=== PATIENT | female | born 1945 | race Caucasian/White ===

== ENCOUNTER → 2020-10-21 10:25 | Outpatient (CLI) | payer MEDICARE, OTHER, SELFPAY ==
--- NOTE | 2020-10-21 | DI.RAD.S_ITS ---
PROCEDURE: XR LUMBAR SPINE 2-3V INDICATIONS: Other chronic pain TECHNIQUE: 3 views of the lumbar spine were acquired. COMPARISON: None. FINDINGS: Bones: 5 [id number] vertebrae are present. There is grade 1 retrolisthesis of L2 on L3 and grade 1 anterolisthesis of L4 on L5. Degenerative disc disease is present, severe at L2-L3, moderate at L1-L2 and L3-L4, mild at L4-L5 and L5-S1. Severe facet arthropathy at L4-L5 and L5-S1. No vertebral body compression fractures. There is a sclerotic focus in the right inferior pubic ramus. Soft tissues: Overlying bowel gas pattern is normal. No suspicious soft tissue calcifications. IMPRESSION: 1. Severe degenerative disc and facet disease in lumbar spine. Dictated by: Roseanne Meredith M.D. on 10/21/2020 at 13:08 Approved by: Roseanne Meredith M.D. on 10/21/2020 at 13:15
== END ==
PROVIDERS: PCP Student in an Organized Health Care Education/Training Program; Referring Provider Student in an Organized Health Care Education/Training Program; Visit Provider Student in an Organized Health Care Education/Training Program
DX: M51.16 Intervertebral disc disorders with radiculopathy, lumbar region (principal); M51.17 Intervertebral disc disorders with radiculopathy, lumbosacral region; M47.26 Other spondylosis with radiculopathy, lumbar region; M47.27 Other spondylosis with radiculopathy, lumbosacral region; G89.29 Other chronic pain
CPT/HCPCS: 72100

== ENCOUNTER → 2020-11-28 11:09 | Outpatient (CLI) | payer MEDICARE, OTHER, SELFPAY ==
--- NOTE | 2020-11-28 11:13 | DI.RAD.S_ITS ---
PROCEDURE: XR CERVICAL SPINE 2V OR 3V INDICATIONS: spine pain TECHNIQUE: 4 view(s) of the cervical spine were acquired. COMPARISON: [facility], CR, XR LUMBAR SPINE 2-3V, 10/21/2020, 10:31. FINDINGS: Bones: No fractures or dislocations to the T1 level. The lateral masses of C1 appear intact on the odontoid view. No suspicious bony lesions. Loss of lordosis which could be related to muscle spasm, rigidity or simply positional. Grade 1 retrolisthesis C4-C5 and C5-C6. Grade 1 spondylolisthesis C7-T1. Multilevel disc degeneration, severe at the C4-C5, C5-C6 and C6-C7 levels where there is bilateral facet joint arthropathy. Mild multilevel uncovertebral hypertrophy. Soft tissues: No prevertebral soft tissue swelling. IMPRESSION: Loss of lordosis and multilevel spondylosis. Dictated by: Charli Howard [facility] Interpreted: Sarah Mcguire MD on 11/28/2020 at 14:37 Transcribed by: PIETER on 11/28/2020 at 14:38 Approved by: Sarah Mcguire M.D. on 11/28/2020 at 17:07
== END ==
PROVIDERS: PCP Student in an Organized Health Care Education/Training Program; Referring Provider Student in an Organized Health Care Education/Training Program; Visit Provider Student in an Organized Health Care Education/Training Program
DX: M54.2 Cervicalgia (principal); M47.812 Spondylosis without myelopathy or radiculopathy, cervical region
CPT/HCPCS: 72040

== ENCOUNTER 2021-02-11 21:55 | Emergency (ER) | payer MEDICARE, OTHER, SELFPAY ==
[2021-02-11 22:02] VITALS: BP 112/59; PULSE 54; RESP 16; TEMP 36.7; O2SAT 98
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
[2021-02-11] MEDS: TET,DIPH,PERTUSS(ACELL),VAC/PF 0.5 ML SYRINGE IM (22:49)
[2021-02-11 23:52] VITALS: BP 145/67; PULSE 60; RESP 18; O2SAT 98
== END 2021-02-11 23:55 | disposition home or self-care (01) ==
PROVIDERS: Emergency Provider Emergency Medicine; PCP Student in an Organized Health Care Education/Training Program
DX: S51.011A Laceration without foreign body of right elbow, initial encounter (principal); V19.9XXA Pedal cyclist (driver) (passenger) injured in unspecified traffic accident, initial encounter; Z23 Encounter for immunization
CPT/HCPCS: 12002; 90471; 99283; 90715

== ENCOUNTER → 2021-04-09 11:03 | Outpatient (CLI) | payer MEDICARE, OTHER, SELFPAY ==
--- NOTE | 2021-04-09 | DI.MRI.S_ITS ---
PROCEDURE: MR CERVICAL SPINE WO CON INDICATIONS: Cervicalgia TECHNIQUE: Noncontrast sagittal T1 spin echo and T2 fast spin echo, sagittal STIR, foraminal oblique sagittal T2 fast spin echo, and axial gradient echo or T2 fast spin echo through the cervical spine. COMPARISON: None. FINDINGS: Image quality: Excellent. Alignment and Curvature: There is normal bony alignment. There is straightening of the normal cervical lordosis Bone Marrow: Degenerative endplate changes noted at C4-5, C5-6 and C6-7. Vertebral body height is maintained. Spinal Cord: Visualized spinal cord has normal size and signal. No cerebellar tonsillar herniation. Paraspinous Soft Tissues: No paravertebral masses. Prevertebral soft tissues are normal in thickness. C2-C3: Disc height is maintained. Hypertrophic left facet joint results in moderate left and no right foraminal stenosis. No central stenosis. C3-C4: Disc height is maintained. Mild circumferential disc bulge results in mild central and no foraminal stenosis. C4-C5: Moderate disc space narrowing and posterior disc osteophyte complex results in moderate central stenosis with flattening the ventral surface of the cord. No cord edema. Moderate bilateral foraminal stenosis present. C5-C6: Moderate disc space narrowing posterior disc osteophyte complex results in severe central stenosis with cord indentation in flattening, narrowing the AP diameter of the thecal sac to 5 mm. Hypertrophic uncovertebral joints result in severe bilateral foraminal stenosis greater on the left. C6-C7: Posterior disc osteophyte complex with probable superimposed paracentral left protrusion results in severe central stenosis and cord indentation. No cord edema or gliosis. AP diameter of the thecal sac is 5 mm. Severe left and moderate right foraminal stenosis. C7-T1: Mild disc height loss without central or foraminal stenosis. IMPRESSION: Multilevel degenerative disc disease and arthropathy results in varying degrees of central and foraminal stenosis including severe central stenosis at C5-6 and C6-7, narrowing the AP diameter of the thecal sac to 5 mm. Approved by: Indra Campbell M.D. on 04/09/2021 at 14:22
== END ==
PROVIDERS: PCP Student in an Organized Health Care Education/Training Program; Referring Provider Student in an Organized Health Care Education/Training Program; Visit Provider Student in an Organized Health Care Education/Training Program
DX: M50.31 Other cervical disc degeneration, high cervical region (principal); M48.02 Spinal stenosis, cervical region; M47.812 Spondylosis without myelopathy or radiculopathy, cervical region
CPT/HCPCS: 72141

== ENCOUNTER → 2021-04-27 12:16 | Outpatient (CLI) | payer MEDICARE, OTHER, SELFPAY ==
--- NOTE | 2021-04-27 | DI.MRI.S_ITS ---
PROCEDURE: MR LUMBAR SPINE WO CON INDICATIONS: spinal stenosis lumbar region TECHNIQUE: Noncontrast sagittal T1 spin echo and T2 fast echo, sagittal STIR, axial T1 and T2 fast spin echo through the lumbar spine. In cases with scoliosis, additional coronal T2 fast spin echo may be performed. COMPARISON: [facility], CR, XR LUMBAR SPINE 2-3V, 10/21/2020, 10:31. FINDINGS: Image quality: This examination is limited by involuntary motion artifact. Alignment and Curvature: There is minimal retrolisthesis at L1-L2, mild retrolisthesis at L2-L3. Minimal retrolisthesis is seen at L3-L4. Mild grade 1 anterolisthesis is seen at L4-L5. No definite associated pars defects are seen at L4. Bone Marrow: Marrow is of normal overall signal. No acute vertebral body compression fractures. Spinal Cord: Conus medullaris terminates at the T12-L1 level. Visualized cord demonstrates normal signal and size. Paraspinous Soft Tissues: No paravertebral masses. There is a 4.7 cm left renal cyst seen anteriorly. T12-L1: Normal appearance. L1-L2: At least moderate loss of disc height and disc signal can be seen. Mild to moderate disc bulge is seen. There is moderate right-sided and no left-sided neural foraminal narrowing seen. Mild central canal narrowing is seen. L2-L3: Moderate to severe loss of disc height and disc signal can be seen. Bridging endplate osteophytes are seen. Moderate disc bulge is seen, with a central disc protrusion. Moderate facet joint hypertrophy is seen. There is at least moderate bilateral neural foraminal narrowing seen at this level. At least moderate central canal narrowing can be seen. L3-L4: Mild loss of disc height is seen. Loss of disc signal is seen. Moderate disc bulge is seen, with a central disc protrusion. At least moderate facet hypertrophy can be seen. There is moderate to severe bilateral neural foraminal narrowing seen, left worse than right. There is a degree of compression seen upon the exiting nerve roots. Moderate to severe central canal narrowing is also seen. L4-L5: Mild loss of disc height is seen. Loss of disc signal is seen. Moderate disc bulge is seen, with a central disc protrusion/disc uncovering. Prominent facet hypertrophy is seen at this level. There is moderate to severe bilateral neural foraminal narrowing seen, with associated compression upon the exiting L4 nerve roots. Moderate to severe central canal narrowing can be seen at this level. L5-S1: The disc height is well-preserved. Loss of disc signal is seen at this level. Mild to moderate disc bulge is seen. Prominent facet hypertrophy is seen at this level. There is moderate to severe left-sided neural foraminal narrowing, with associated compression upon the exiting left L5 nerve root. Moderate right-sided neural foraminal narrowing is seen. Mild to moderate central canal narrowing can be seen. IMPRESSION: Multiple levels of lumbar spine degenerative change are seen, which are overall worst at the L3-L4 and L4-L5 levels. Several sites of significant neural foraminal narrowing can be seen, with associated exiting nerve root compression. Dictated by: Ramin Ortiz M.D. on 04/27/2021 at 12:03 Approved by: Ramin Ortiz M.D. on 04/27/2021 at 12:09
== END ==
PROVIDERS: PCP Student in an Organized Health Care Education/Training Program; Referring Provider Orthopaedic Surgery Orthopaedic Surgery of the Spine; Visit Provider Orthopaedic Surgery Orthopaedic Surgery of the Spine
DX: M48.061 Spinal stenosis, lumbar region without neurogenic claudication (principal); M48.07 Spinal stenosis, lumbosacral region; M47.816 Spondylosis without myelopathy or radiculopathy, lumbar region; M47.817 Spondylosis without myelopathy or radiculopathy, lumbosacral region
CPT/HCPCS: 72148

== ENCOUNTER 2022-12-22 09:52 | Day surgery (SDC) | payer MEDICARE, OTHER, SELFPAY ==
--- NOTE | 2022-12-22 | PATH_ITS ---
[facility] Accession Number: [id number] No. of containers..01 Tissue . 01 Material submitted: . body - CERVICAL PATCH . 01 Diagnosis: Designated Cervical Patch, Biopsy: Columnar mucosa negative for intestinal metaplasia. Negative for dysplasia and malignancy. Please see comment. MRV 12/28/2022 1300 Local . 01 Comment: The morphologic appearance could be compatible with cervical inlet patch in the appropriate endoscopic setting. . . 01 Electronically signed: . Cristina Condon MD, Pathologist NPI- [id number] . 01 Gross description: . CERVICAL PATCH: Received in formalin is 1 fragment(s) of singh, soft tissue measuring 0.1 x 0.1 x 0.1 cm submitted entirely in 1 cassette(s) /JODIE 12/27/2022 1947 Local . 01 Pathologist provided ICD-10: K21.9 . 01 CPT . 734553 Performed at: 01 [facility] [address] [place] [address] [address], [place], [place] [id number] MD Noah Viera MD Phone: [phone]
[2022-12-22 10:16] VITALS: BMI 24.7
[2022-12-22 10:27] VITALS: BP 163/93; PULSE 51; RESP 16; TEMP 36.3; O2SAT 97
--- NOTE | 2022-12-22 10:44 | PM.HP.1 ---
History of Present Illness History of Present Illness Date Patient Seen: 12/22/22 Chief complaint: EGD Narrative: Dysphagia/globus with GE reflux PFSH Social History marital status: household members: spouse lives independently: Yes Smoking Status: Never smoker Meds Home Medications and Allergies Home Medications Medication Instructions Recorded Confirmed Type citalopram 20 mg tablet 20 mg PO DAILY 12/22/22 12/22/22 History famotidine 20 mg tablet 20 mg PO BID 12/22/22 12/22/22 History Allergies Allergy/AdvReac Type Severity Reaction Status Date / Time No Known Drug Allergies Allergy Verified 12/22/22 10:13 Exam Vital Signs (past 8 hours): - 12/22/22 10:27 Temperature 97.4 F L Pulse Rate 51 L Respiratory Rate 16 Blood Pressure 163/93 H Pulse Oximetry 97 Oxygen Delivery Method Room Air Oxygen Delivery Method Room Air Narrative Exam Narrative: Oropharynx free of lesions Chest clear to auscultation percussion Cardiac exam reveals no S3 or murmur Assessment & Plan Assessment & Plan narrative: Globus sensation and history of reflux rule out mechanical cause. Risks, benefits, alternatives have been explained to EGD.
--- NOTE | 2022-12-22 10:45 | PM.OP.EGD ---
Operative Date/Time/Diagnoses Date of procedure: 12/22/22 Pre-op diagnosis: See indication and findings Procedure & Clinicians Study performed: EGD Indications: Dysphagia Surgeon: Chase Solitario Procedure Notes Procedure in detail: After informed consent was obtained the patient was placed in left lateral decubitus position. The video upper scope was placed into the oropharynx and with the patient's help swallowed into the esophagus. The esophagus stomach and duodenum were carefully examined. On withdrawal, retroflexed view the GE junction was performed. The scope was removed. The patient tolerated procedure well. Blood loss none Complications none Sedation mac Findings 1. Cervical inlet patch just below the upper esophageal sphincter. Single biopsy was taken to see if more similar to antral mucosa. 2. Normal distal esophagus with normal GE junction 3. Normal normal stomach 4. Normal duodenal bulb and sweep I suspect that patient has globus sensation from poorly controlled reflux. Suggest trial of omeprazole 20 mg b.i.d. OTC for the next 2-4 weeks and then follow-up with Dr. Spring in the office if she continues to have symptoms.
[2022-12-22 11:08] VITALS: BP 120/58; PULSE 52; RESP 14; TEMP 35.8; O2SAT 91
[2022-12-22 11:14] VITALS: BP 117/58; PULSE 48; RESP 15; O2SAT 92
[2022-12-22 11:18] VITALS: BP 116/56; PULSE 52; RESP 18; O2SAT 97
[2022-12-22 11:23] VITALS: BP 129/71; PULSE 49; RESP 14; TEMP 36.2; O2SAT 96
[2022-12-22 11:31] VITALS: BP 140/72; PULSE 52; RESP 18; TEMP 36.3; O2SAT 96
== END 2022-12-22 11:46 | disposition home or self-care (01) ==
PROVIDERS: PCP Student in an Organized Health Care Education/Training Program; Referring Provider Internal Medicine Gastroenterology; Visit Provider Internal Medicine Gastroenterology
PROC: 0DJ08ZZ Inspection of Upper Intestinal Tract, Via Natural or Artificial Opening Endoscopic (ICD-10-PCS; CPT 43235; principal; 2022-12-22 11:00)
DX: R13.10 Dysphagia, unspecified (principal); K21.9 Gastro-esophageal reflux disease without esophagitis
CPT/HCPCS: 43239; J2704